=== PATIENT | female | born 1990 | race African-American/Black ===

== ENCOUNTER 2016-09-26 13:27 | Emergency (ER) | payer OTHER ==
[~2016-09-26] VITALS: Ht 160 cm; Wt 72.6 kg
[2016-09-26] MEDS ORDERED: METOCLOPRAMIDE 10 MG TAB PO ONE (14:15)
[2016-09-26 14:56] VITALS: BP 119/77
--- NOTE | 2016-09-26 15:02 | REP ---
Obstetric sonography: First trimester study. History: Left adnexal pain. Findings: Transabdominal scanning is performed. This confirms the presence of a viable single intrauterine gestation in a free-floating lie. The crown-rump length of the embryonic pole is 15 mm. This corresponds with a gestational age estimate of 7 weeks 6 days. heart rate is recorded at 155 beats per minute. No subchorionic hemorrhage is seen. No extrauterine abnormalities observed. There is a 4.3 cm cystic area in the maternal left ovary consistent with corpus luteum. No other significant finding. Impression: Viable single intrauterine gestation at 7-week 6 days by crown-rump length. NELLY by sonography May 09, 2017. 4.3 cm corpus luteum cyst left ovary. No other abnormality. Signed by Rosendo Torres MD 09/26/2016 04:02 P
== END 2016-09-26 15:01 | disposition home or self-care (01) ==
LOC: M ED 13:36
DX: O26.891 Other specified pregnancy related conditions, first trimester (principal); Z3A.01 Less than 8 weeks gestation of pregnancy; N83.12 Corpus luteum cyst of left ovary

== ENCOUNTER → 2017-03-19 | Outpatient (REF) | LOC: M LAB 12:20 | PROVIDERS: ATTEND Nurse Practitioner Adult Health | DX: Z02.9 Encounter for administrative examinations, unspecified (principal) ==

== ENCOUNTER → 2017-11-10 | Outpatient (CLI) | payer OTHER | LOC: M LDO 09:10 | DX: O47.1 False labor at or after 37 completed weeks of gestation (principal); Z3A.38 38 weeks gestation of pregnancy; O98.513 Other viral diseases complicating pregnancy, third trimester; B00.9 Herpesviral infection, unspecified | CPT/HCPCS: 59025 ==

== ENCOUNTER 2017-11-11 01:44 | Inpatient (IN) | payer OTHER ==
[2017-11-11] MEDS: LACTATED RINGER'S 1000 ML IV (02:35)
[2017-11-11 03:07] LABS: HEMATOCRIT 35.8 % (36.0-47.0); HEMOGLOBIN 11.8 g/dl (12.0-15.5); MEAN CORPUSCULAR HEMOGLOBIN 27.1 pg (27.0-33.0); MEAN CORPUSCULAR VOLUME 82.1 fl (80.0-96.0); PLATELET COUNT, AUTOMATED 216 10^3/uL (150-450); RED BLOOD COUNT 4.36 10^6/uL (4.00-5.40); RED CELL DISTRIBUTION WIDTH 13.3 % (11.5-14.5); WHITE BLOOD COUNT 8.9 10^3/uL (4.0-10.0)
[2017-11-11] MEDS ORDERED: FENTANYL 2MCG/ML ROPIVACAINE 0.2% IN 0.9% NACL 200ML IVBAG As Ordered (03:30)
[2017-11-11] MEDS ORDERED: ePHEDrine SULFATE 25 MG/5 ML(5MG/ML) SYRINGE IV (03:35)
[2017-11-11] MEDS ORDERED: diphenhydrAMINE INJ 50MG/ML VIAL (J1200) IV (03:35)
[2017-11-11] MEDS ORDERED: NALOXONE INJ 0.4 MG/1 ML VIAL (J2310) IV (03:35)
[2017-11-11] MEDS ORDERED: REFRIGERATOR IV KEYS XX (03:35)
[2017-11-11] MEDS ORDERED: ONDANSETRON 4MG/2ML VIAL (J2405) IV (03:35)
[2017-11-11] MEDS ORDERED: FENTANYL/ROPIVACAINE/NACL BAG 200 ML EPIDURAL (03:35)
[2017-11-11] MEDS ORDERED: LACTATED RINGER'S 1000 ML IV (03:35)
[2017-11-11] MEDS ORDERED: EPIDURAL COMMENT XX (03:35)
[2017-11-11] MEDS ORDERED: EPIDURAL/PCA KEYS XX (03:35)
[2017-11-11] MEDS ORDERED: ePHEDrine SULFATE 25 MG/5 ML(5MG/ML) SYRINGE As Ordered (04:06)
[2017-11-11] MEDS ORDERED: OXYTOCIN 30 UNITS IN 0.9% NaCl 500ML IV BAG (J2590) As Ordered (05:45)
[2017-11-11] MEDS ORDERED: OXYTOCIN INJ 10 UNITS/ML VIAL (J2590) As Ordered (05:45)
[2017-11-11] MEDS: ACETAMINOPHEN 500 MG TAB PO (07:56)
[2017-11-11] MEDS: LR 1,000 ML IV (08:05)
[2017-11-11] MEDS: OXYTOCIN DRIP 30 UNITS in APPROPRIATE DILUENT 1 EA IV (11:19)
[2017-11-11] MEDS ORDERED: DOCUSATE SODIUM 100 MG CAP PO (13:15)
[2017-11-11] MEDS: OXYTOCIN INJ 10 UNITS/ML VIAL (J2590) IV (13:15)
[2017-11-11] MEDS ORDERED: METHYLERGONOVINE MALEATE 0.2 MG TAB PO (13:15)
[2017-11-11] MEDS: IBUPROFEN 600 MG TAB PO (14:39)
[2017-11-11] MEDS: ACETAMINOPHEN TAB 650MG DOSE (2X325MG) PO (17:32)
[2017-11-12] MEDS: IBUPROFEN 600 MG TAB PO ×3 (02:46→20:11)
[2017-11-12] MEDS: DIBUCAINE 1% OINTMENT 30GM TOP (07:18)
[2017-11-12] MEDS: PRENATAL VITAMINS CHEWABLE TABLET PO (07:20)
[2017-11-13] MEDS: PRENATAL VITAMINS CHEWABLE TABLET PO (07:52)
== END 2017-11-13 12:40 | disposition home or self-care (01) | DRG 774 ==
LOC: M LDO 01:44 → M LDI 03:13 → M OBS 15:00
PROVIDERS: Obstetrics & Gynecology
PROC: 10E0XZZ Delivery of Products of Conception, External Approach (ICD-10-PCS; principal; 2017-11-11)
PROC: 0HQ9XZZ Repair Perineum Skin, External Approach (ICD-10-PCS; 2017-11-11)
PROC: 10907ZC Drainage of Amniotic Fluid, Therapeutic from Products of Conception, Via Natural or Artificial Opening (ICD-10-PCS; 2017-11-11)
DX: O98.52 Other viral diseases complicating childbirth (principal); Z3A.39 39 weeks gestation of pregnancy; Z37.0 Single live birth; B00.9 Herpesviral infection, unspecified; O69.81X0 Labor and delivery complicated by cord around neck, without compression, not applicable or unspecified; O70.0 First degree perineal laceration during delivery